=== PATIENT | female | born 1945 | race Asian ===

== ENCOUNTER 2019-11-24 | Emergency (ER) | payer MEDICARE ==
[2019-11-24] MEDS ORDERED: OMEPRAZOLE10 MG PO (17:17)
[2019-11-24] MEDS ORDERED: BINOSTO70 MG PO (17:18)
[2019-11-24] MEDS ORDERED: ZOLOFT50 MG PO (17:18)
[2019-11-24] MEDS ORDERED: FISH OIL1000 MG PO (17:19)
[2019-11-24] MEDS ORDERED: ATORVASTATIN CA10 MG PO (17:19)
[2019-11-24] MEDS ORDERED: TOPIRAMATE25 MG PO (17:19)
[2019-11-24 17:51] LABS: HEMATOCRIT 42.7 % (37.0-47.0); HEMOGLOBIN 14.3 g/dl (12.0-16.0); IMMATURE GRANULOCYTES 0.2 % (0.0-5.0); MEAN CELL VOLUME 93.2 fL CALC (80.0-100.0); MEAN CORPUSCULAR HGB 31.2 pG CALC (26.0-32.0); MEAN CORPUSCULAR HGB CONC 33.5 g/L CALC (32.0-36.0); NEUT# 3.4 thou/uL (2.00-7.15); RED BLOOD COUNT 4.58 mill/uL (4.20-5.60); RED CELL DISTRI WIDTH 12.8 % (11.5-15.5)
[2019-11-24 18:14] LABS: ALBUMIN 4.7 g/dL (3.2-5.0); ALKALINE PHOSPHATASE 70 u/l (38-126); ANION GAP 14 (6-22 (CALC)); BILIRUBIN, TOTAL 0.5 mg/dL (0.0-1.4); BUN 20 mg/dL (8-23); BUN/CREATININE RATIO 43 (12-20 (CALC)); CARBON DIOXIDE 21 mmol/l (22-30); CHLORIDE 107 mmol/l (95-108); CREATININE 0.5 mg/dL (0.5-1.0); GFR > 60 ML/MIN (>=60 (CALC)); GFR FOR AFR.AMER. > 60 ML/MIN (>=60 (CALC)); POTASSIUM 4.1 mmol/l (3.5-5.1); SGOT/AST 43 u/l (9-36); SODIUM 138 mmol/l (137-146); TOTAL PROTEIN 8.2 g/dL (6.3-8.2)
[2019-11-24 18:44] LABS: TSH, 3RD GENERATION 1.29 uIU/mL (0.47 - 4.68)
== END 2019-11-24 19:43 | disposition home or self-care (01) ==
PROVIDERS: Family Medicine
DX: R53.83 Other fatigue (principal); R22.0 Localized swelling, mass and lump, head

== ENCOUNTER 2022-12-06 14:48 | Emergency (ER) | payer MEDICARE ==
[~2022-12-06] VITALS: Ht 152.4 cm; Wt 36.0 kg
[~2022-12-06 14:48] MED LIST: ATORVASTATIN CA10 MG PO; BINOSTO70 MG PO; FISH OIL1000 MG PO; OMEPRAZOLE10 MG PO; TOPIRAMATE25 MG PO; ZOLOFT50 MG PO
[2022-12-06 15:01] VITALS: BP 160/86
[2022-12-06 15:38] LABS: BASO% 0.4 % (0-3); EOS% 1.1 % (0-8); HEMATOCRIT 38.6 % (37.0-47.0); HEMOGLOBIN 12.8 g/dl (12.0-16.0); LYMPH% 31.6 % (15-41); MEAN CELL VOLUME 95.3 fL CALC (80.0-100.0); MEAN CORPUSCULAR HGB 31.6 pG CALC (26.0-32.0); MEAN CORPUSCULAR HGB CONC 33.2 g/dL CAL (32.0-36.0); MONO% 6.7 % (2-13); NEUT# 2.78 thou/uL (2.00-7.15); NEUT% 60.2 % (42-76); RED BLOOD COUNT 4.05 mill/uL (4.20-5.60); RED CELL DISTRI WIDTH 12.6 % (11.5-15.5)
[2022-12-06 15:54] VITALS: BP 110/91
[2022-12-06 15:54] LABS: ALBUMIN 4.3 g/dL (3.2-5.0); ALKALINE PHOSPHATASE 62 u/l (38-126); ANION GAP 9 (6-22 (CALC)); BUN 14 mg/dL (8-23); BUN/CREATININE RATIO 25 (12-20 (CALC)); CARBON DIOXIDE 26 mmol/l (22-30); CHLORIDE 105 mmol/l (95-108); CREATININE 0.6 mg/dL (0.5-1.0); GFR FOR AFR.AMER. > 60 ML/MIN (>=60 (CALC)); GFR OTHER RACES > 60 ML/MIN (>=60 (CALC)); POTASSIUM 3.7 mmol/l (3.5-5.1); SGOT/AST 28 u/l (9-36); SODIUM 136 mmol/l (137-146); TOTAL PROTEIN 7.2 g/dL (6.3-8.2)
[2022-12-06 15:55] LABS: BILIRUBIN, TOTAL 0.2 mg/dL (0.02-1.3)
[2022-12-06 16:01] VITALS: BP 144/79
[2022-12-06] MEDS ORDERED: LINZESS145 MCG (16:01)
[2022-12-06] MEDS ORDERED: CYMBALTA60 MG PO (16:02)
[2022-12-06 16:23] LABS: TSH, 3RD GENERATION 0.14 uIU/mL (0.47 - 4.68)
[2022-12-06 17:00] VITALS: BP 158/83
[2022-12-06 17:09] VITALS: BP 158/83
== END 2022-12-06 17:19 | disposition home or self-care (01) ==
LOC: ED 14:48
PROVIDERS: Family Medicine
DX: R42 Dizziness and giddiness (principal); R53.83 Other fatigue; R63.4 Abnormal weight loss; K21.9 Gastro-esophageal reflux disease without esophagitis; F41.9 Anxiety disorder, unspecified; E78.00 Pure hypercholesterolemia, unspecified; R01.1 Cardiac murmur, unspecified